=== PATIENT | male | born 1980 | race Caucasian/White ===

== ENCOUNTER 2025-10-15 14:22 | Emergency (ER) | payer MEDICAID, SELFPAY ==
--- OUTSIDE RECORDS SUMMARY | 2024-05-15 03:00 | XMS_ITS ---
Author Organization [facility] Address [address] [place] [address] Care Team Providers Care Computer Patternmaker Name Role Phone WayneSilvana riley Primary Care Provider Sebastián Gentile Unavailable [phone] Migration, Provider Unavailable Unavailable REASON FOR VISIT EMR-Abiel Encounters Encounter Location Date Provider Diagnosis Migrated_Facility 0 0 05/15/2024 Provider Migration Plan Of Treatment No Information Progress Notes * Flex RIOS PDOB: (45 yo M)Acc No.[id number]:05/15/2024 Patient: Clarice Flex SALDANA :1980 A ge:44 Y S ex:Male Address:[address] [place] [id number] Subjective: * Chief Complaints: * E MR-Abiel * * Date:
--- OUTSIDE RECORDS SUMMARY | 2024-05-16 03:00 | XMS_ITS ---
Author Organization [facility] Address [address] [place] [address] Care Team Providers Care Center Machine Set Up Operator Name Role Phone Silvana Black Primary Care Provider Sebastián Gentile Unavailable [phone] Migration, Provider Unavailable Unavailable Allergies Allergen (clinical drug ingredient) Drug/Non Drug Allergy documented on EMR Reaction Allergy Type Onset Date Status aspirin Aspirin Unknown Drug Allergy 01/17/2021 active Aspirin Adult Unknown Drug Allergy Act yessenia REASON FOR VISIT EMR-Abiel Medications Medication SIG (Take, Route, Frequency, Duration) Notes Start Date End Date Status Melatonin 3 MG Oral Tablet ORAL *Reorder from [facility] for eRx and Interaction Alerts* 12/12/2020 Active Ibuprofen 100 MG Oral Tablet ORAL *[facility] for [facility] and Interaction Alerts* 01/17/2021 Active Amoxicillin 500 MG Capsule Oral 12/29/2020 12/30/2020 Active acetaminophen 325 MG Oral Tablet [Tylenol] ORAL *[facility] from [facility] for [facility]Rx and Interaction Alerts* 01/17/2021 Active Social History Social History Additional Details Category Social Info Options Details Migrated Social History Migrated Social History Smoking Status : Current some day tobacco user , History of tobacco use : Current some day tobacco user Encounters Encounter Location Date Provider Diagnosis Migrated_Facility 0 0 05/16/2024 Provider Migration Plan Of Treatment No Information Progress Notes * Flex RIOS PDOB: (45 yo M)Acc No.[id number]:05/16/2024 Patient: Clarice Flex SALDANA :1980 A ge:44 Y S ex:Male Address:[address] [place] [id number] Subjective: * Chief Complaints: * E MR-Abiel * Family History: F ather: PRN - Father: . M other: PRN - Mother: :: Hypertension,,known absent . * Social History: M igrated Social History: M igrated Social History: Smoking Status : Current some day tobacco user , History of tobacco use : Current some day tobacco user. * Medications: T akingAmoxicillin 500 MG Capsule Oral , stop date 12/30/2020Melatonin 3 MG Oral Tablet ORAL , Notes to Pharmacist: *[facility] for [facility] and Interaction Alerts*Ibuprofen 100 MG Oral Tablet ORAL , Notes to Pharmacist: *Reorder from [facility] for eRx and Interaction Alerts*acetaminophen 325 MG Oral Tablet [Tylenol] ORAL , Notes to Pharmacist: *Reorder from [facility] for eRx and Interaction Alerts*Taking Amoxicillin 500 MG Capsule Oral , stop date 12/30/2020Taking Melatonin 3 MG Oral Tablet ORAL , Notes to Pharmacist: *Reorder from [facility] for eRx and Interaction Alerts*Taking Ibuprofen 100 MG Oral Tablet ORAL , Notes to Pharmacist: *Reorder from [facility] for eRx and Interaction Alerts*Taking acetaminophen 325 MG Oral Tablet [Tylenol] ORAL , Notes to Pharmacist: *Reorder from [facility] for eRx and Interaction Alerts* * Allergies: A spirin: Allergy - Onset Date 01/17/2021spirin Adult: Allergy * * Date:
--- OUTSIDE RECORDS SUMMARY | 2024-06-02 05:30 | XMS_ITS ---
Author Organization [facility] Address [address] [place] [address] Care Team Providers Care Upper Trimmer Name Role Phone Silvana Black Primary Care Provider Sebastián Gentile [phone] REASON FOR VISIT New patient for kidney stones Encounters Encounter Location Date Provider Diagnosis [facility] [address] [place] [address] [address] [place] [address] 06/02/2024 Sebastián Gentile Plan Of Treatment No Information Progress Notes * Flex RIOS PDOB: (45 yo M)Acc No.[id number]:06/02/2024 Progress Notes Patient: Clarice jones Flex Maurer Provider: Yareli Gentile MD :1980 A ge:44 Y S ex:Male Date:06/02/2024 Address:[address] [place] [phone] Pcp:Silvana Black Subjective: * Chief Complaints: * N ew patient for kidney stones Billing Information: * Procedure Codes: * Electronic signature of Francesco Gentile MD on 10/15/2025 at 02:26 PM COORDINATOR INTEGRATED MARKETING Sign off status: Pending * Provider: Yareli Gentile MD Date: 0 06/02/2024 Generated for Printi ng/Faxing/eTransmitting on: 1 12/15/2024 02:26 PM COORDINATOR INTEGRATED MARKETING
--- OUTSIDE RECORDS SUMMARY | 2024-06-22 04:20 | XMS_ITS ---
Author Organization [facility] Address [address] [place] [address] Care Team Providers Care School Lunch Manager Name Role Phone Silvana Black Primary Care Provider Sebastián Gentile [phone] REASON FOR VISIT New patient for kidney stones Encounters Encounter Location Date Provider Diagnosis [facility] [address] [place] [address] [address] [place] [address] 06/22/2024 Sebastián Gentile Plan Of Treatment No Information Progress Notes * Flex RIOS PDOB: (45 yo M)Acc No.[id number]:06/22/2024 Progress Notes Patient: Clarice jones Flex Maurer Provider: Yareli Gentile MD :1980 A ge:44 Y S ex:Male Date:06/22/2024 Address:[address] [place] [phone] Pcp:Silvana Black Subjective: * Chief Complaints: * N ew patient for kidney stones Billing Information: * Procedure Codes: * Electronic signature of Francesco Gentile MD on 10/15/2025 at 02:26 PM PUMP REBUILDER Sign off status: Pending * Provider: Yareli Gentile MD Date: 0 06/22/2024 Generated for Printi ng/Faxing/eTransmitting on: 1 12/15/2024 02:26 PM PUMP REBUILDER
--- OUTSIDE RECORDS SUMMARY | 2024-09-02 08:00 | XMS_ITS ---
Author Organization [facility] Address [address] [place] [address] Care Team Providers Care Media Liaison Officer Name Role Phone Silvana Black Primary Care Provider [phone] Sebastián Gentile Unavailable [phone] Una Mohamud Unavailable REASON FOR VISIT next available f/u w/Litholink/CHAVO Encounters Encounter Location Date Provider Diagnosis [facility] [address] [place] [address] [address] [place] [address] 09/02/2024 Una Mohamud Plan Of Treatment No Information Progress Notes * Flex RIOS PDOB: (45 yo M)Acc No.[id number]:09/02/2024 Progress Notes Patient: Clarice sanchezstephen Flex Maurer Provider: ELLEN Borrego :1980 A ge:44 Y S ex:Male Date:09/02/2024 Address:[address] [place] [phone] Pcp:Silvana Black Subjective: * Chief Complaints: * n ext available f/u w/Litholink/CHAVO Billing Information: * Procedure Codes: * Electronic signature of ELLEN Bennett on 10/15/2025 at 02:26 PM CLINICAL SPECIALTY REP Sign off status: Pending * Provider: Flakita Mohamud, ANATOMIC PATHOLOGY ASSISTANT Date: 1 Generated for Jaime miranda/Bulmaro/Kamla on: 12/15/2024 02:26 PM CLINICAL SPECIALTY REP
--- OUTSIDE RECORDS SUMMARY | 2025-04-27 07:00 | XMS_ITS ---
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 IF YOU HAVE CHILLS, FEVER, FLANK PAIN, BLOOD IN URINE, NAUSEA, VOMITING, PLEASE SEEK EMERGENT CARE. 04/27/2025 Recurrent urinary tract infection (ICD-10 - N39.0) PATIENT WILL CONTACT OFFICE IF THEY ARE HAVING S/S OF UTI, CAN COME IN FOR NV TO PROVIDE SAMPLE. Symptoms: Common symptoms include a strong, persistent urge to urinate, a burning sensation when urinating, cloudy or strong-smelling urine, and pelvic pain. 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 Plan Of Treatment Treatment Notes Assessment Notes Calculus of kidney PLAN - PATIENT TO HAVE KUB, CBC, CMP, UA AND FOLLOW UP WITH PROVIDER IN 6 MONTHS. IF YOU HAVE CHILLS, FEVER, FLANK PAIN, BLOOD IN URINE, NAUSEA, VOMITING, PLEASE SEEK EMERGENT CARE. Recurrent urinary tract infection PATIENT WILL CONTACT OFFICE IF THEY ARE HAVING S/S OF UTI, CAN COME IN FOR NV TO PROVIDE SAMPLE. Symptoms: Common symptoms include a strong, persistent urge to urinate, a burning sensation when urinating, cloudy or strong-smelling urine, and pelvic pain. Other stricture of urethral meatus in ma le IF PATIENT BEGINS HAVING TROUBLE WITH SPRAYING, URINATING, STREAM SPLITTING OR BECOMING WEAK, PLEASE CONTACT OFFICE Other PATIENT TO HAVE KUB, CBC, CMP, UA AND FOLLOW UP WITH PROVIDER IN 6 MONTHS. History and Physical Notes * HPI (History of Present Illness) Category Sub-Category Detail Notes Category Not es Provider Note 45-year-old male patient presents to clinic for follow-up Last seen October 2024 Nephrolithiasis, meatal stenosis Last appointment he had no issues urinating, did state he feels like he does not empty his bladder all the way, does lift up his stomach to help him void He was still taking his tamsulosin Does not feel his stricture had returned We have refilled his tamsulosin at last visit He was going to do his Litholink Litholink showed the the patient had hypercalciuria. Stated could be caused by hypercalcemia, vitamin D excess, sarcoidosis, hyperthyroidism, malignant neoplasm. Advised that he needs a low-sodium diet, low calcium diet, limit protein and recheck in 6 weeks. Hyperoxaluria Advised that he needed to lower diet calcium and have a low oxalate diet Border high urine pH, could be treated with bicarbonate or citrate Had severe hyperuricosuria Needed to reduce poultry fish and meat protein consider allopurinol, can cause uric acid stones Progress Notes * Flex RIOS PDOB: (45 yo M)Acc No.[id number]:04/27/2025 Progress Notes Patient: Flex Avalos Provider: ELLEN Borrego :1980 A ge:45 Y S ex:Male Date:04/27/2025 Address:[address] [place], [place] [phone] Pcp:Silvana Black Subjective: * Chief Complaints: * 6 m f/u w ua and pvr * HPI: P rovider Note: 45-year-old male patient presents to clinic for follow-up Last seen October 2024 Nephrolithiasis, meatal stenosis Last appointment he had no issues urinating, did state he feels like he does not empty his bladder all the way, does lift up his stomach to help him void He was still taking his tamsulosin Does not feel his stricture had returned We have refilled his tamsulosin at last visit He was going to do his Litholink Litholink showed the the patient had hypercalciuria. Stated could be caused by hypercalcemia, vitamin D excess, sarcoidosis, hyperthyroidism, malignant neoplasm. Advised that he needs a low-sodium diet, low calcium diet, limit protein and recheck in 6 weeks. Hyperoxaluria Advised that he needed to lower diet calcium and have a low oxalate diet Border high urine pH, could be treated with bicarbonate or citrate Had severe hyperuricosuria Needed to reduce poultry fish and meat protein consider allopurinol, can cause uric acid stones. Assessment: * Assessment: 1. C alculus of kidney - N20.0 (Primary) 2 . R ecurrent urinary tract infection - N39.0 3 . O ther stricture of urethral meatus in male - N35.811 ? Plan: * Treatment: 2. R ecurrent urinary tract infection Notes: PATIENT WILL CONTACT OFFICE IF THEY ARE HAVING S/S OF UTI, CAN COME IN FOR NV TO PROVIDE SAMPLE. Symptoms: Common symptoms include a strong, persistent urge to urinate, a burning sensation when urinating, cloudy or strong-smelling urine, and pelvic pain. 3. O ther stricture of urethral meatus in male Notes: IF PATIENT BEGINS HAVING TROUBLE WITH SPRAYING, URINATING, STREAM SPLITTING OR BECOMING WEAK, PLEASE CONTACT OFFICE 4. O thers Notes: PATIENT TO HAVE KUB, CBC, CMP, UA AND FOLLOW UP WITH PROVIDER IN 6 MONTHS. Billing Information: * Procedure Codes: * Electronic signature of ELLEN Bennett on 10/15/2025 at 02:26 PM STAR ROUTE MAIL DRIVER Sign off status: Pending * Provider: ELLEN Borrego Date: 0 04/27/2025 Generated for Jaime miranda/Bulmaro/Kamla on: 12/15/2024 02:26 PM STAR ROUTE MAIL DRIVER
[2025-10-15 14:26] VITALS: BP 177/95; PULSE 105; RESP 20; TEMP 36.6; O2SAT 95; BMI 52.4
--- NOTE | 2025-10-15 14:26 | XRR_ITS ---
PROCEDURE INFORMATION: Exam: XR Chest Exam date and time: 10/15/2025 2:42 PM Age: 45 years old Clinical indication: Shortness of breath; Additional info: Weakness; SOB; HTN TECHNIQUE: Imaging protocol: Radiologic exam of the chest. Views: 1 view. COMPARISON: No relevant prior studies available. FINDINGS: Lungs: Unremarkable. No consolidation or mass. Pleural spaces: Unremarkable. No pleural effusion. No pneumothorax. Heart/Mediastinum: Unremarkable. No cardiomegaly. Bones/joints: Unremarkable. XR/XR chest 1V portable [id number] IMPRESSION: No acute findings.
--- OUTSIDE RECORDS SUMMARY | 2025-10-15 14:27 | XMS_ITS | Patient Health Record ---
Author Organization [facility] Address [address] [place] [address] Care Team Providers Care Provider Relations Representative Name Role Phone Silvana Black Primary Care Provider Sebastián Gentile Unavailable [phone] Una Mohamud Unavailable [phone] Allergies Allergen (clinical drug ingredient) Drug/Non Drug Allergy documented on EMR Reaction Allergy Type Onset Date Status aspirin Aspirin Unknown Drug Allergy 01/17/2021 active Aspirin Adult Unknown Drug Allergy Act yessenia morphine Morphine Unknown Drug Allergy Active Results Component Value Reference Range Notes Litholink--NO CPT Reviewed date:11/19/2024 01:07:54 PM Interpretation: Performing Lab: Notes/Report: Litholink Sent to Ref Lab [facility], [place] - [id number] Reviewed date:10/26/2024 02:02:23 PM Interpretation: Performing Lab: Notes/Report: Glucose 0 Bili 0 Ketones 0 Sp [place] 1.015 Blood 0 pH 7.0 Protein 0 Urobili 0 Nitrites 0 Leukocytes 0 Reason For Referral No Information Medications Medication SIG (Take, Route, Frequency, Duration) Notes Start Date End Date Status acetaminophen 325 MG Oral Tablet [Tylenol] ORAL *Reorder from [facility] for eRx and Interaction Alerts* 01/17/2021 Active Taltz 80 MG/ML Solution Prefilled Syringe 1 mL Subcutaneous Not-T aking Naproxen 250 MG Tablet 1 tablet with food or milk Orally Twice a day prn Not-Taking hydroCHLOROthiazide 25 MG Tablet TAKE 1 TABLET BY MOUTH ONCE DAILY Oral; Duration: 90 Days Active B Complex Active ZyrTEC 10 MG Tablet Chewable 1 tablet Orally Once a day prn Active Tamsulosin HCl 0.4 MG Capsule Take 1 capsule by mouth once daily; Duration: 30 days Active Melatonin 3 MG Oral Tablet ORAL *Reorder from [facility] for eRx and Interaction Alerts* 12/12/2020 Not-Taking Ibuprofen 100 MG Oral Tablet ORAL *Reorder from [facility] for eRx and Interaction Alerts* 01/17/2021 Not-Taking Irbesartan 150 MG Tablet 1 tablet Orally Once a day; Duration: 30 day(s) 06/23/2024 Active Tamsulosin HCl 0.4 MG Capsule 1 capsule Orally Once a day; Duration: 90 days 10/26/2024 10/21/20 25 Active Multivitamin Active Joint Support Active Immunizations Vaccine Route Administration Date Status Comme nts COVID-19 Vaccine (W[facility]OP) Dose #1 IM Intramuscular 07/31/2021 Administered COVID-19 Vaccine ([facility]OP) Dose #2 IM Intramuscular 08/22/2021 Administered Social History Tobacco Use: Social History Observation Description Date Details (start date - stop date) Former Smoker NA - NA Social History Depression Screening Social Info Question Answer Notes PHQ-9 Little interest or pleasure in doing thin gs Several days Feeling down, depressed, or hopeless Not at all Trouble falling or staying asleep, or sleeping t oo much Several days Feeling tired or having little energy More than half the days Poor appetite or overeating More than half the d ays Feeling bad about yourself, or that you are a failure, or have let yourself or your family down Several days Trouble concentrating on thi ngs, such as reading the newspaper or watching television Several days Moving or speaking so slowly that other people could have noticed. Or the opposite ? being so fidgety or restless that you have been moving around a lot more than usual Not at all Thoughts that you would be b misbah off , or of hurting yourself in some way Not at all Total Score 8 Interpretation Mild Depression Drugs/Alcohol: Social Info Question Answer Notes Alcohol Screen (Audit-C) Did you have a drink containing alcohol in the past year? No Points 0 Interpretation Negative Drugs Have you used drugs other than those for medical reasons in the past 12 months? Yes Caffeine Intake: 2-3 cups per day Tobacco Use: Social Info Question Answer Notes xTobacco Use/Smoking Are you a former smoker How long has it been since you last smoked? 1-3 months Tobacco use other than smoking: Are you an other tobacco user? No Additional Details Category Social Info Options Details Drugs/Alcohol: Do you smoke marijuana? Ad mits , Denies, __ Past marijuana use Migrated Social History Migrated Social History Smoking Status : Current some day tobacco user , History of tobacco use : Current some day tobacco user Section Notes: quit smoking 2 days ago, use s THC gummies, quit smoking 2 days ago, use s THC gummies, Problems Problem Type SNOMED Code ICD Code Onset Dates Problem Status W/U Status Risk Notes Problem Tobacco user (979856521) Nicotine dependence, cigarettes, in remission (F17.211) Active confirmed Problem Calculus of kidney (34430256) Calculus of kidney (N20.0) Active confirmed Problem Urinary retention (482319056) Urinary retention (R33.9) Active confirmed Problem Psoriasis (3220977) Psoriasis (L40.9) Active confirmed Problem Postoperative urethral stricture (429045821) Postprocedural male urethral stricture (N99.114) Active confirmed Problem Body mass index 40+ - severely obese (072723429) BMI 45.0-49.9, adult (Z68.42) Active confirmed Problem Morbid obesity (647240106) Morbid obesity (E66.01) Active confirmed Problem Recurrent urinary tract infection (425131610) Recurrent urinary tract infection (N39.0) Active confirmed Problem Male urethral stricture (disorder) (5666334399283543 9) Other stricture of urethral meatus in male (N35.811) Active confirmed Problem Congenital adrenal hyperplasia (519373595) Congenital adrenal hyperplasia (E25.0) Active confirmed Vital Signs Heart Rate 77 /min 10/26/2024 Temperature 98.5 degrees Fahrenheit 10/26/2024 Height-cm 165.1 cm 10/26/2024 Blood pressure diastolic 99 mm Hg 10/26/2024 Weight-kg 145.6 kg 10/26/2024 Height 65 in 10/26/2024 Blood pressure systolic 152 mm Hg 10/26/2024 Weight 321 lbs 10/26/2024 BMI 53.41 kg/m2 10/26/2024 Encounters Encounter Location Date Provider Diagnosis [facility] [address] [place] [id number] 10/26/2024 Una Mohamud Calculus of kidney N20.0 ; Recurrent urinary tract infection N39.0 ; Postprocedural male urethral stricture N99.114 and Urinary retention R33.9 [facility] [address] [place] [address] 04/26/2025 Sebastián Langsay [facility] [address] [place] [address] 01/17/2025 Silvana Black [facility] [address] [place] [address] 10/25/2024 Sebastián Gentile [facility] [address] [place] [address] 10/25/2024 Sebastián Gentile Assessments Encounter Date Diagnosis (ICD Code) Assessment Notes Treatment Notes Treatment Clinical Notes Section Notes 10/26/2024 Recurrent urinary tract infection (ICD-10 - N39.0) Recurrent Urinary Tract Infections (UTIs): Patient Information Overview: Recurrent UTIs are defined as having two or more infections within six months or three or more infections within a year. They are more common in women but can affect anyone. Recurrent UTIs can significantly impact quality of life and may require ongoing management. Symptoms: Frequent urination Urgent need to urinate Burning sensation during urination Cloudy or strong-smelling urine Blood in the urine (hematuria) Pelvic pain or discomfort Causes: Anatomical Factors: [place] urethra in women, structural abnormalities in the urinary tract. Sexual Activity: Increases the risk of introducing bacteria into the urinary tract. Menopause: Decreased estrogen levels can lead to changes in the urinary tract that increase susceptibility to infections. Incomplete Bladder Emptying: Conditions like bladder prolapse or neurological disorders. Previous UTIs: History of UTIs can increase the risk of recurrence. Diagnosis: Urinalysis: To detect bacteria, blood, or pus in the urine. Urine Culture: To identify the specific bacteria causing the infection. Imaging Tests: Ultrasound or CT scans to check for abnormalities in the urinary tract. Cystoscopy: A procedure using a scope to view the inside of the bladder. Treatment: Antibiotics: Short or long-term antibiotic therapy to treat and prevent infections. Prophylactic Antibiotics: Low-dose antibiotics taken regularly to prevent infections. Post-Coital Antibiotics: Single-dose antibiotics taken after sexual activity. Non-Antibiotic Prophylaxis: Cranberry Products: May help prevent bacteria from adhering to the bladder wall. D-Mannose: A sugar that can prevent certain bacteria from sticking to the urinary tract. Probiotics: To maintain a healthy balance of bacteria in the urinary tract. Topical Estrogen: For postmenopausal women to reduce the risk of infections. Prevention: Hydration: Drink plenty of fluids to flush out bacteria. Hygiene: Wipe from front to back after using the toilet to prevent bacteria from spreading. Urinate Frequently: Avoid holding urine for long periods. Post-Coital Hygiene: Urinate after sexual activity to flush out bacteria. Avoid Irritants: Avoid using irritating feminine products like douches and powders. Patient Education: Understanding the Condition: Educate patients about the causes and risk factors of recurrent UTIs. Adherence to Treatment: Emphasize the importance of completing antibiotic courses and following preventive measures. Lifestyle Modifications: Encourage changes in diet, hydration, and hygiene practices to reduce the risk of recurrence. Monitoring Symptoms: Keep a diary of symptoms and triggers to help manage the condition effectively. When to Seek Medical Attention: Persistent or worsening symptoms despite treatment. Signs of a severe infection, such as fever, chills, or back pain. 10/26/2024 Calculus of kidney (ICD-10 - N20.0) *Kidney stones Symptoms Severe pain in the side and back, below the ribs. Pain that radiates to the lower abdomen and groin. Pain during urination [place], red, or brown urine. Nausea and Vomiting Frequent urination or persistent urge to urinate. Causes and Risk Factors Dehydration: Not drinking enough water can lead to concentrated urine, increasing the risk of stone formation. Diet: High intake of salt, protein, and sugar can increase the risk. Family History: A family history of kidney stones can increase the likelihood of developing them. Medical Conditions: Conditions like hyperparathyroidis m, gout, and certain urinary tract infections can contribute to stone formation. Treatment Options Hydration: Encourage patients to drink plenty of water to help pass the stone. Pain Management: Lvht-ent-dekresu pain relievers like ibuprofen or acetaminophen. Medications: Alpha blockers can help relax the muscles in the ureter to facilitate stone passage. Medical Procedures: Extracorporeal Shock Wave Lithotripsy (ESWL): Uses sound waves to break stones into smaller pieces. Ureteroscopy: A thin scope is inserted through the urethra and bladder to remove or break up the stone. Percutaneous Nephrolithotomy: Surgical removal of large stones through a small incision in the back. Prevention Tips Hydration: Drink at least 2-3 liters of water daily. Dietary Changes: Reduce salt, protein, and oxalate-rich foods (e.g., spinach, nuts). Medications: For those with recurrent stones, medications may be prescribed to prevent new stones from forming. Regular Monitoring: Follow-up with healthcare providers for regular check-ups and urine tests. When to Seek Immediate Medical Attention Severe pain that makes it difficult to sit still or find a comfortable position. Pain accompanied by nausea and vomiting. Fever and chills, which may indicate an infection. 10/26/2024 Postprocedural male urethral stricture (ICD-10 - N99.114) Urethral Stricture: Patient Information Overview: A urethral stricture involves the narrowing of the urethra, the tube that carries urine from the bladder out of the body. This condition is caused by scarring, which can obstruct the flow of urine and lead to various urinary symptoms. Symptoms: Difficulty Urinating: A weak or slow urine stream. Straining to Urinate: Needing to push or strain to start urination. Incomplete Emptying: Feeling that the bladder is not completely empty after urination. Frequent Urination: Needing to urinate more often than usual. Urinary Urgency: A sudden, strong urge to urinate. Urinary Retention: Inability to urinate, which can be a medical emergency. Urinary Tract Infections (UTIs): Recurrent infections due to incomplete bladder emptying. Causes: Injury or Trauma: Damage to the urethra from accidents, surgery, or catheterization. Infections: Sexually transmitted infections (STIs) or other infections causing inflammation and scarring. Medical Procedures: Previous surgeries or procedures involving the urethra or prostate. Congenital Conditions: Some individuals are born with a narrow urethra. Inflammatory Conditions: Conditions like lichen sclerosus that cause chronic inflammation. Diagnosis: Medical History and Physical Exam: To identify symptoms and potential causes. Urinalysis: To check for infections or other abnormalities. Uroflowmetry: Measures the flow rate of urine. Postvoid Residual Measurement: Checks the amount of urine left in the bladder after urination. Cystoscopy: A thin tube with a camera is inserted into the urethra to visualize the stricture. Retrograde Urethrogram: An X-ray with contrast dye to outline the urethra and identify the location and length of the stricture. Treatment: Dilation: Gradually stretching the urethra using special instruments. Urethrotomy: An endoscopic procedure to cut the stricture and widen the urethra. Urethroplasty: Surgical reconstruction of the urethra, often considered the most effective long-term solution. Catheterization: Temporary use of a catheter to bypass the stricture and allow urine to drain. Stents: Inserting a small tube to keep the urethra open, though this is less commonly used. Prevention: Avoid Trauma: Be cautious to avoid injuries to the pelvic area. Safe Practices: Practice safe sex to prevent STIs. Proper Catheter Use: Ensure proper technique and hygiene if catheterization is necessary. Patient Education: Understanding the Condition: Educate patients about the causes, symptoms, and treatment options for urethral stricture. Hygiene Practices: Emphasize the importance of good hygiene to prevent infections. Follow-Up Care: Regular follow-up with healthcare providers to monitor symptoms and treatment effectiveness. Lifestyle Modifications: Encourage patients to maintain a healthy weight and avoid activities that may cause trauma to the urethra. When to Seek Medical Attention: Inability to urinate (urinary retention). Severe pain or discomfort during urination. Signs of infection (e.g., fever, severe redness, or swelling). Persistent or worsening symptoms despite treatment. For more detailed information, patients can refer to reputable sources such as the [facility], the National [place] of Diabetes and Digestive and Kidney Diseases (NIDDK), and the [place] [employer] (AUA). 10/26/2024 Urinary retention (ICD-10 - R33.9) *Patient Education on Urinary Retention Understanding Urinary Retention Definition: Urinary retention is the inability to empty the bladder completely or at all. It can be acute (sudden and severe) or chronic (gradual and ongoing). Types: Acute Urinary Retention: A medical emergency where the patient cannot urinate at all, causing severe pain and discomfort. Chronic Urinary Retention: A condition where the bladder does not empty completely, leading to frequent urination and other complications. Causes Obstruction: Blockages in the urinary tract, such as an enlarged prostate, urethral stricture, or bladder stones. Nerve Problems: Conditions like diabetes, multiple sclerosis, or spinal cord injuries that affect nerve signals to the bladder. Medications: Certain drugs, including antihistamines, decongestants, and muscle relaxants, can interfere with bladder function. Infections: Urinary tract infections (UTIs) can cause swelling and obstruction. Postoperative: Anesthesia and surgery, particularly pelvic or abdominal procedures, can temporarily affect bladder function. Symptoms Acute Urinary Retention: Sudden inability to urinate, severe lower abdominal pain, and a distended bladder. Chronic Urinary Retention: Frequent urination, difficulty starting urination, weak urine stream, feeling of incomplete bladder emptying, and urinary incontinence. Diagnosis Medical History and Physical Exam: Assessment of symptoms, medical history, and a physical examination, including a digital rectal exam for men. Bladder Scan: Ultrasound to measure the amount of urine left in the bladder after urination. Urodynamic Tests: Assess bladder function and urine flow. Cystoscopy: A scope inserted into the bladder to look for blockages or abnormalities. Treatment Options Catheterization: Inserting a catheter to drain the bladder, providing immediate relief in acute cases. Medications: Alpha-blockers to relax the bladder neck muscles and prostate, or antibiotics if an infection is present. Surgery: Procedures to remove blockages, such as transurethral resection of the prostate (TURP) for an enlarged prostate. Behavioral Therapies: Bladder training and pelvic floor exercises to improve bladder control. Self-Management Strategies Scheduled Voiding: Urinating at regular intervals to prevent bladder overdistension. Double Voiding: Urinating, then waiting a few minutes and trying again to ensure the bladder is empty. Fluid Management: Drinking adequate fluids but avoiding excessive intake, especially before bedtime. Avoid Bladder Irritants: Reducing intake of caffeine, alcohol, and spicy foods. Preventive Measures Regular Check-Ups: Monitoring for conditions that can lead to urinary retention, such as prostate enlargement. Pelvic Floor Exercises: Strengthening pelvic muscles to improve bladder control. Medication Review: Discussing with healthcare providers the potential side effects of medications that may affect bladder function. When to Seek Medical Attention Acute Symptoms: Sudden inability to urinate, severe pain, or a distended bladder requires immediate medical attention. Persistent Symptoms: Difficulty urinating, frequent urination, or a weak urine stream should be evaluated by a healthcare provider. Plan Of Treatment Pending Test Test Name Order Date Basic Metabolic Panel (BMP) 36202 2023 Uric Acid (U) 24 hr 72593 06/24/2024 US Breast Right Limited-[id number] 08/22/2022 Insurance Providers Payer Name Payer Address Payer Phone Subscriber Number Group Number Insured Name Patient Relationship to Insured Coverage Start Date Coverage End Date [place] [address] [place] [address] [id number] Flex Cheng Self - patient is the insured Medical (General) History Medical History History ICD Code Congenital adrenal hyperplasia E25.0 Psoriasis L40.9 Morbid (severe) obesity due to excess ca lories E66.01 Recurrent UTI N39.0 Surgical History Surgery Date(Month/Year) gallbladder 2013 cosmetic surgery Hypospadias repair at 8 yrs Hospitalization History Reason Date(Month/Year) ER visit with CT scan: headaches cluster 09/2020
--- OUTSIDE RECORDS SUMMARY | 2025-10-15 14:27 | XMS_ITS | Data Portability ---
Author Organization [facility], [facility] Address [address] [place] [address] Assessment No assessment recorded. Plan of Treatment Reminders Order Date Submit Date Provider Last Modified By Organization Details Last Modified Time Details Appointments None record ed. Lab None record ed. Referral None record ed. Procedures None record ed. Surgeries None record ed. Imaging None record ed. Medication Orders None record ed. Patient TargetsNo targets recorded. Patient Instructions Encounter Date Encounter Id Patient Instructions Last Modified By Organization Details Last Modified Time 02/08/2023 [id number] learning about high blood pressure Not available 02/08/2023 16:49:43 If symptoms get worse, present to ER. Please read the Care Instructions document you were given at discharge for recommended home care instructions. Not available 02/08/2023 16:49:19 Reason for Referral None Reported. Medical Equipment None Reported. Allergies Allergen ID Allergen Name Allergen Category Reaction Reaction Severity Criticality Documentation Date Start Date Code Code System Note Provider Name and Address Organization Details Recorded Time 180903 aspirin medicatio n Not available Not available Not available 02/08/2023 1191 [facility] 16:21:13 Medications Name Sig Start Date Stop Date Status Note LastModified by Organization Details LastModified Time Taltz Syringe 80 mg/mL subcutaneou s this is the loading dose INJECT 2 syringes SUBCUTANE OUSLY on day 1. then INJECT 1 syringe SUBCUTANE OUSLY EVERY 2 WEEKS for 12 weeks 02/08 completed Not Available Not Available Not Available Vitals Date Recorded Oxygen saturation Heart rate Respiratory rate Body temperature Body height Body mass index (BMI) Body weight Systolic And Diastolic Provider Name and Address Organization Details Last Updated DateTime 3 97 % 76 /min 18 /min 98.4 [degF] 165.1 cm 51.3 kg/m2 437057. 45 g 131/86 mm[Hg] SAUL MICHELLE [place] - [facility] 3 16:40:04 Social History None recorded. Functional Status Question Answer Note LastModified by Organizat ion Details LastModified Time Do you use any illicit or recreational drugs? No [email or web address] Information not available 02/08/2023 Mental Status None recorded. Family History Nothing Reported Notes:cancers Medical History No medical history recorded. Past Encounters Encounter ID Performer Location Encounter Start Date Encounter Closed Date Diagnosis/Indication Diagnosis SNOMED-CT Code Diagnosis ICD10 Code Diagnosis IMO Codes Diagnosis Note [id number] [address] [place] [address] 06/23/2020 16:37:56 06/23/2020 17:19:18 [id number] [facility] [address] [place] [address] 11/16/2019 13:28:55 11/16/2019 14:48:03 [id number] [facility] owmws09C [facility] [address] [place] [address] 11/20/2020 15:47:04 11/20/2020 16:35:30 [id number] [place] [address] [address] [place] [address] 02/08/2023 16:11:17 02/08/2023 16:56:39 Elevated blood-pressure reading without diagnosis of hypertension 289597085 R03.0 I recommend you follow up with a local PCP this coming week. Health Concerns Section Related Observation LastModified by Organization Detai ls LastModified Time None Recorded Concern Status LastModified by Organization Details LastModified Time None Recorded Advance Directives Directive None Recorded Payers Insurance Date Sequence Insurance Name Policy Number Policy Bruno Covered Member ID Bruno Member ID Guarantor Name 02/08/2023 1 [facility] [id number] Flex Erasto Tafoya [id number] Flex Tafoya 02/08/2023 PROMPT PAY Hernán tthughw Erasto Tafoya Notes Date Note Type Note Provider Name and Address Organization Details Recorded Time 02/08/2023 text/html 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 Currently no PCP. Has mild RUBI. Declined CoVid test; gets tested weekly at work. ILIANA BAH NP [address] [place], [address], [place] - [facility] 02/08/2023 16:50:08
--- NOTE | 2025-10-15 14:36 | ED_ITS ---
HPI - URI/Sore Throat 2 General: Chief Complaint: Upper Respiratory Infection Stated Complaint: SOB Time Seen by Provider: 10/15/25 14:32 History of Present Illness: 45-year-old man with a history of obesit y and hypertension who presents to the emergency room with cough and shortness of breath. He says this been going on for a few days now. He has intermittent swelling in his legs. He says he takes clonidine only as needed for high blood pressure and that was not working. He says this all happened after he had to have vaccines. He says he has intermittent swelling in his legs. He has mild edema today. No nausea vomiting. No fever. Altered mental status Related Data Home Medications ?Medication ?Instructions ?Recorded ?Confirmed clonidine HCl 0.1 mg tablet 0.1 mg PO BID PRN BLOOD DE ESSURE 10/15/25 10/15/25 Previous Rx's ?Medication ?Instructions ?Recorded dexamethasone 6 mg tablet 6 mg PO DAILY 5 days #5 tabs 10/15/25 doxycycline hyclate 100 mg capsule 100 mg PO BID 7 day s #14 caps 10/15/25 Allergies Allergy/AdvReac Type Severity Reaction Status Date / Time Opioids - Morphine Analogues Allergy Unknown Verified 10/15/25 14:29 Review of Systems 2 Narrative: Constitutional symptoms: Negative except as documented in HPI. Skin symptoms: Negative except as documented in HPI. Eye symptoms: Negative except as documented in HPI. ENMT symptoms: Negative except as documented in HPI. Respiratory symptoms: Negative except as documented in HPI. Cardiovascular symptoms: Negative except as documented in HPI. Gastrointestinal symptoms: Negative except as documented in HPI. Genitourinary symptoms: Negative except as documented in HPI. Musculoskeletal symptoms: Negative except as documented in HPI. Neurologic symptoms: Negative except as documented in HPI. Psychiatric symptoms: Negative except as documented in HPI. Endocrine symptoms: Negative except as documented in HPI. Physical Exam 2 Narrative: EXAM NARRATIVE: General: Alert, no acute distress. Skin: Warm, dry. Head: Normocephalic, atraumatic. Neck: Supple, trachea midline. Eye: Extraocular movements are intact. Ears, nose, mouth and throat: mucosa moist. Cardiovascular: Regular, Normal peripheral perfusion. Respiratory: Lungs are clear to auscultation, respirations are non-labored, breath sounds are equal, Symmetrical chest wall expansion. Frequent cough Gastrointestinal: Soft, Nontender, Non distended Musculoskeletal: Normal ROM, no deformity. Neurological: Alert and oriented, No focal neurological deficit observed. Psychiatric: Cooperative, appropriate mood & affect. Course 2 Vital Signs: Vital signs: Vital Signs Temperature 97.9 F 10/15/25 14:26 Pulse Rate 77 10/15/25 15:52 Respiratory Rate 20 H 10/15/25 14:26 Blood Pressure 148/99 10/15/25 15:52 Pulse Oximetry 91 10/15/25 15:52 Oxygen Delivery Me thod Room Air 10/15/25 15:52 MDM - URI/Sore Throat Medical Decision Making Medical decision making Patient's reason for coming to the emergency room: Shortness of breath, hypertension Social determinants: Patient is employed I reviewed the patient's medical record. Patient had no previous visits here. I reviewed the patient's current home meds Patient's only medication is as needed clonidine Alternate historians: None Differential diagnosis for patient with shortness of breath includes but is not limited to and based on the above HPI, review of systems and physical exam: Pneumonia. Bronchitis. Asthma or COPD with acute exacerbation. Acute coronary syndrome / MA. Pulmonary embolism. Anxiety. Congestive heart failure. Viral infections including influenza and Covid-19. Atrial fibrillation. Anxiety. Pleural effusion. Pneumothorax. Orders placed to evaluate differential diagnosis based on the above differential, HPI and physical exam EKG: Time 1454. Rate 83. Normal sinus rhythm, No ST-T changes, no ectopy, normal DE & QRS intervals, This was reviewed and interpreted by myself the ER physician at 1459 Chest x-ray: No acute process. No infiltrate. No pneumothorax. This was reviewed and interpreted by myself the emergency room physician. I also reviewed the radiology report. Lab Review: Laboratory results were reviewed and interpreted by myself the emergency room physician. No leukocytosis. No anemia. No renal failure. Flu COVID and RSV were negative. proBNP was negative. D-dimer was positive so patient did get a CTA CTA of the chest with PE protocol: No PE. No acute process. This was reviewed and interpreted by myself the emergency room physician. I also reviewed the radiology report. Assessment of risk: Level of risk: Low risk patient. Hospitalization considerations: No consideration of hospitalization. Reexamination: Patient remained stable. No increased work of breathing. No altered mental status. No focal motor deficits. No oxygen requirement Assessment and plan: Acute bronchitis - Discharged home - Discussed plan with patient. Answered any questions. - Evaluation and treatment of this problem were appropriate in the emergency setting. Lab Data 10/15/25 15:00 10/15/25 15:00 Radiology Impressions Chest X-Ray 10/15/25 14:26 IMPRESSION: No acute findings. Chest CTA 10/15/25 15:49 IMPRESSION: No acute findings. Laboratory Results WBC 8.62 10^3/uL (3.29-11.43) 10/15/25 15:00 RBC 5.53 10^6/uL (3.85-5.65) 10/15/25 15:00 Hgb 14.80 g/dL (11.27-16.99) 10/15/25 15:00 Hct 46.0 % (37-53) 10/15/25 15:00 MCV 83.2 fl (82-101) 10/15/25 15:00 MCH 26.8 pg (27-33) L 10/15/25 15:00 MCHC 32.2 g/dL (30-55) 10/15/25 15:00 RDW 14.2 % (12.1-15.1) 10/15/25 15:00 Plt Count 216 10^3/cmm (157-399) 10/15/25 15:00 MPV 9.8 fL (7.4-10.4) 10/15/25 15:00 Neut % (Auto) 57.0 % 10/15/25 15:00 Lymph % (Auto) 28.2 % 10/15/25 15:00 [place] % (Auto) 9.3 % 10/15/25 15:00 Eos % (Auto) 4.6 % 10/15/25 15:00 Baso % (Auto) 0.7 % 10/15/25 15:00 Neut # (Auto) 4.91 10^3/uL (1.8-7.7) 10/15/25 15:00 Lymph # (Auto) 2.4 10^3/uL (0.8-4.8) 10/15/25 15:00 [place] # (Auto) 0.8 10^3/uL (0.2-0.9) 10/15/25 15:00 Eos # (Auto) 0.4 10^3/uL (0.0-0.8) 10/15/25 15:00 Baso # (Auto) 0.1 10^3/uL (0.0-0.1) 10/15/25 15:00 Nucleated RBC % (auto) 0 % 10/15/25 15:00 Nucleated RBCs # 0.0 /100WBC 10/15/25 15:00 D-Dimer 2.11 ug/mLFEU (0-0.59) H 10/15/25 15:00 Sodium 138 mmol/L (136-145) 10/15/25 15:00 Potassium 3.3 mmol/L (3.5-5.1) L 10/15/25 15:00 Chloride 103 mmol/L (98-107) 10/15/25 15:00 Carbon Dioxide 27 mmol/L (22-29) 10/15/25 15:00 Anion Gap 11.3 (5-19) 10/15/25 15:00 BUN 12 mg/dL (6-20) 10/15/25 15:00 Creatinine 0.9 mg/dL (0.7-1.2) 10/15/25 15:00 GFR Calculation 91.3 mL/min (90-130) 10/15/25 15:00 Glucose 101 mg/dL (65-115) 10/15/25 15:00 Calculated Osmolality 286 mOsm/kg (285-295) 10/15/25 15:00 Lactic Acid 2.0 mmol/L (0.5-2.2) 10/15/25 15:00 Calcium 8.9 mg/dL (8.5-10.5) 10/15/25 15:00 Total Bilirubin 0.4 mg/dL (0.15-1.2) 10/15/25 15:00 AST 26 U/L (0-40) 10/15/25 15:00 ALT 22 U/L (0-41) 10/15/25 15:00 Alkaline Phosphatase 47 U/L (40-130) 10/15/25 15:00 C-Reactive Protein 7.6 mg/L (0.0-4.9) H 10/15/25 15:00 NT-Pro-B Natriuret Pep < 36 pg/mL (0-125) 10/15/25 15:00 Total Protein 6.9 g/dL (6.6-8.7) 10/15/25 15:00 Albumin 3.6 g/dL (3.5-5.2) 10/15/25 15:00 Globulin 3.3 g/dL (1.3-4.6) 10/15/25 15:00 Influenza A (PCR) Negative (Negative) 10/15/25 14:33 Influenza Type B (PCR) Negative (Negative) 10/15/25 14:33 RSV (PCR) Negative (Negative) 10/15/25 14:33 SARS-CoV-2 (PCR) Negative (Negative) 10/15/25 14:33 All radiology interpretation(s) finalized by discharge Discharge Plan Discharge Patient Disposition: Home Clinical Impression: Upper respiratory infection Condition: Stable Prescriptions: New doxycycline hyclate 100 mg capsule 100 mg PO BID 7 Days Qty: 14 0RF dexamethasone 6 mg tablet 6 mg PO DAILY 5 Days Qty: 5 0RF No Action clonidine HCl 0.1 mg Tablet 0.1 mg PO BID PRN (Reason: BLOOD PRESSURE ) Discharge Orders: Discharge ED (Routine); Ordered 10/15/25 Ordered By: Padmini Allen Patient Instructions: Acute Bronchitis (ED), Opioid Safety, Pain Management, Patient Portal & Samantha Instructions Activity Restrictions/Additional Instructions: Thank you for choosing [facility] for your healthcare needs today. You have been screened and evaluated and felt safe for discharge. Health conditions do change or evolve sometimes and as such it is important that you follow up with your Primary Doctor to be re checked, 3-5 days is a general good time frame for follow up. You are always welcome to return to the ED for re assessment if your symptoms are worsening or you have new concerns Print Language: Hungarian Coding Level of Care Code ED [employer] Manager for Umu Rosales
[2025-10-15 14:38] VITALS: BP 177/95; PULSE 93; O2SAT 94
--- NOTE | 2025-10-15 14:39 | ECG_ITS ---
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 Measurements Intervals [place] Rate: 83 P: 58 WV: 180 QRS: 15 QRSD: 90 T: 31 QT: 371 QTc: 437 Interpretive Statements SINUS RHYTHM No previous ECG available for comparison Electronically Signed On 10-16-2025 17:27:28 [employer] ASSEM[employer]ER by Cameron Talavera M.D. [email or web address]
[2025-10-15 15:14] LABS: Hematocrit 46.0 % (37-53); Hemoglobin 14.80 g/dL (11.27-16.99); Mean Corpuscular HGB Conc 32.2 g/dL (30-55); Mean Corpuscular Hemoglobin 26.8 pg (27-33); Mean Corpuscular Volume 83.2 fl (82-101); Nucleated Red Blood Cells % 0 %; Platelet Count 216 10^3/cmm (157-399); Red Blood Count 5.53 10^6/uL (3.85-5.65); White Blood Count 8.62 10^3/uL (3.29-11.43)
[2025-10-15 15:25] LABS: Respiratory Syncytial Virus Ce NEGATIVE (Negative); SARS-CoV-2 PCR NEGATIVE (Negative)
[2025-10-15 15:36] LABS: Lactic Sepsis W/Reflex 2.0 mmol/L (0.5-2.2)
[2025-10-15 15:41] LABS: Alanine Aminotransferase 22 U/L (0-41); Albumin Level 3.6 g/dL (3.5-5.2); Alkaline Phosphatase 47 U/L (40-130); Anion Gap 11.3 (5-19); Aspartate Amino Transferase 26 U/L (0-40); Blood Urea Nitrogen 12 mg/dL (6-20); Calcium 8.9 mg/dL (8.5-10.5); Carbon Dioxide 27 mmol/L (22-29); Chloride 103 mmol/L (98-107); Globulin 3.3 g/dL (1.3-4.6); Glucose 101 mg/dL (65-115); NT Pro B Type Natriuretic Pept < 36 pg/mL (0-125); Osmolality Calculated 286 mOsm/kg (285-295); Potassium 3.3 mmol/L (3.5-5.1); Sodium 138 mmol/L (136-145); Total Protein 6.9 g/dL (6.6-8.7)
--- NOTE | 2025-10-15 15:49 | CTR_ITS ---
PROCEDURE INFORMATION: Exam: CTA Chest With Contrast Exam date and time: 10/15/2025 4:07 PM Age: 45 years old Clinical indication: Abnormal findings; Abnormal diagnostic tests; Elevated d-dimer; Additional info: Tachycardia, elevated ddimer TECHNIQUE: Imaging protocol: Computed tomographic angiography of the chest with contrast. Exam focused on the arteries. 3D rendering (Not supervised by radiologist): MIP and/or 3D reconstructed images were created by the technologist. Radiation optimization: All CT scans at this facility use at least one of these dose optimization techniques: automated exposure control; mA and/or kV adjustment per patient size (includes targeted exams where dose is matched to clinical indication); or iterative reconstruction. Contrast material: OMNI 350; Contrast volume: 55 ml; Contrast route: INTRAVENOUS (IV); COMPARISON: CR (CHEST, ) 10/15/2025 2:42 PM RADIATION DOSE METRICS: Total DLP (mGy-cm): 544.62 FINDINGS: Pulmonary arteries: Normal. No pulmonary emboli. Aorta: Unremarkable. No aortic aneurysm. No aortic dissection. Lungs: Unremarkable. No consolidation. No masses. Pleural spaces: Unremarkable. No pneumothorax. No pleural effusion. Heart: Unremarkable. No cardiomegaly. No pericardial effusion. Lymph nodes: Unremarkable. No enlarged lymph nodes. Bones/joints: Unremarkable. No acute fracture. Soft tissues: Unremarkable. CT/CT angio chest PE protcl [id number] IMPRESSION: No acute findings.
[2025-10-15 15:52] VITALS: BP 148/99; PULSE 77; O2SAT 91
[2025-10-15] MEDS: iohexol 350 mg/mL 500 mL Btl (per mL) IV (16:24)
[2025-10-15 17:11] VITALS: BP 131/98; PULSE 76; O2SAT 96
== END 2025-10-15 17:12 | disposition home or self-care (01) ==
PROVIDERS: Emergency Provider Emergency Medicine
DX: J06.9 Acute upper respiratory infection, unspecified (principal); J20.9 Acute bronchitis, unspecified; I10 Essential (primary) hypertension; E66.9 Obesity, unspecified; Z68.43 Body mass index [BMI] 50.0-59.9, adult
CPT/HCPCS: 36415; 71045; 71275; 80053; 83605; 83880; 85025; 85378; 86140; 87040; 87150; 87205; 87637; 93005; 99285